=== PATIENT | male | born 1945 | race Caucasian/White ===

== ENCOUNTER 2020-06-14 08:08 | Emergency (ER) | payer OTHER ==
[~2020-06-14] VITALS: Ht 180.3 cm; Wt 81.6 kg
[2020-06-14] MEDS ORDERED: KETOROLAC TROMETH 60MG/2ML VIAL IM ONE (08:45)
[2020-06-14] MEDS ORDERED: CARISOPRODOL 350 MG TAB PO ONE (08:45)
[2020-06-14] MEDS ORDERED: HYDROmorphone HCL 2 MG/ML VL IM ONE (09:30)
[2020-06-14] MEDS ORDERED: ONDANSETRON ODT 4 MG TAB PO ONE (09:30)
[2020-06-14] MEDS ORDERED: predniSONE 20 MG TAB PO ONE (10:45)
[2020-06-14 10:52] VITALS: BP 163/68
== END 2020-06-14 11:11 | disposition home or self-care (01) ==
LOC: ER 08:08
DX: S33.5XXA Sprain of ligaments of lumbar spine, initial encounter (principal); M48.061 Spinal stenosis, lumbar region without neurogenic claudication; M79.18 Myalgia, other site; X50.0XXA Overexertion from strenuous movement or load, initial encounter; Y93.89 Activity, other specified; Y92.89 Other specified places as the place of occurrence of the external cause; Y99.8 Other external cause status
CPT/HCPCS: 72131; 96372; 99284; J1170; J1885; J7512; Q0162

== ENCOUNTER 2022-10-10 07:25 | Emergency (ER) | payer MEDICARE, BC ==
[~2022-10-10] VITALS: Ht 180.3 cm; Wt 80.0 kg
[2022-10-10 08:07] LABS: Basophils # (auto) 0.1 10 ^3/uL (0-0.2); Eosinophils # (auto) 0.2 10 ^3/uL (0-0.8); Eosinophils % (auto) 2.6 % (0.0-7.0); Hematocrit 46.9 % (41.0-53.0); Hemoglobin 15.7 g/dL (13.5-17.5); Lymphocytes # (auto) 2.5 10 ^3/uL (0.4-5.4); Lymphocytes % (auto) 27.3 % (10.0-50.0); Mean Corpuscular Hemoglobin 30.8 pg (28.0-32.0); Mean Corpuscular Hgb Conc. 33.4 g/dL (32.0-36.0); Mean Corpuscular Volume 92.2 fL (80.0-100.0); Monocytes # (auto) 0.8 10 ^3/uL (0-1.3); Monocytes % (auto) 8.9 % (0.0-12.0); Neutrophils # (auto) 5.5 10 ^3/uL (1.6-8.6); Neutrophils % (auto) 60.2 % (37.0-80.0); Nucleated Red Blood Cells % 0.1 %; Red Blood Cells 5.08 10^6/uL (4.5-5.90); Red Cell Distribution Width 13.5 % (11.8-14.3); White Blood Cell 9.2 10^3/uL (4.4-10.8)
[2022-10-10 08:19] LABS: Albumin 3.8 g/dL (3.4-5.0); Calcium 9.1 mg/dL (8.5-10.1); Potassium 3.9 mmol/L (3.5-5.1)
[2022-10-10 08:23] LABS: BUN/Creatinine Ratio 13.8 (10.0-20.0); Bilirubin, Total 0.7 mg/dL (0.2-1.0)
[2022-10-10 08:28] LABS: Urine Bacteria FEW /hpf (None Seen); Urine Blood 3+ /uL (Negative); Urine Specific Gravity 1.012 (1.001-1.035); Urine WBC 24 /hpf (0 - 3)
[2022-10-10] MEDS ORDERED: cefTRIAXone SOD 1,000 MG VL IM ONE (09:15)
[2022-10-10] MEDS ORDERED: BACDST PO (09:37)
[2022-10-10] MEDS ORDERED: LIDOCAINE 2%HCL (LOCAL ANESTH.) INJ 10ml MDV ONE (09:45)
[2022-10-10 10:02] VITALS: BP 130/83
== END 2022-10-10 10:08 | disposition home or self-care (01) ==
LOC: ER 07:25
DX: N39.0 Urinary tract infection, site not specified (principal); R33.9 Retention of urine, unspecified
CPT/HCPCS: 36415; 51702; 80053; 81001; 85025; 96372; 99284; J0696; J2001

== ENCOUNTER 2022-10-13 00:22 | Emergency (ER) | payer MEDICARE, BC ==
[~2022-10-13] VITALS: Ht 180.3 cm; Wt 81.8 kg
[~2022-10-13 00:22] MED LIST: BACDST PO
[2022-10-13 01:32] LABS: Urine Bacteria NONE SEEN /hpf (None Seen); Urine Blood 3+ /uL (Negative); Urine Specific Gravity 1.012 (1.001-1.035); Urine WBC 15 /hpf (0 - 3)
[2022-10-13 02:50] VITALS: BP 142/82
== END 2022-10-13 03:06 | disposition home or self-care (01) ==
LOC: ER 00:22
DX: R33.9 Retention of urine, unspecified (principal); Z79.899 Other long term (current) drug therapy
CPT/HCPCS: 51702; 81001; 87086

== ENCOUNTER → 2022-10-28 22:30 | Emergency (ER) | payer MEDICARE, BC | END | disposition left against medical advice (07) | LOC: ER 22:30 | DX: N42.9 Disorder of prostate, unspecified (principal); Z53.21 Procedure and treatment not carried out due to patient leaving prior to being seen by health care provider ==